=== PATIENT | female | born 1960 | race Caucasian/White ===

== ENCOUNTER 2018-02-28 05:59 | Day surgery (SDC) | payer BC ==
[~2018-02-28 05:59] MED LIST: Lactated Ringers 1,000 ML IV ONE
[2018-02-28] MEDS ORDERED: Lactated Ringers 1,000 ML IV SCH (06:00)
[2018-02-28] MEDS ORDERED: DIPRIVAN 200 MG/20 ML IV ONE (06:00)
[2018-02-28] MEDS ORDERED: Zofran 4 MG/2 ML VIAL ONE (06:08)
[2018-02-28] MEDS ORDERED: Zofran 4 MG/2 ML VIAL IV ONE ×2 (06:10→06:15)
[2018-02-28] MEDS ORDERED: Versed 2 MG/2 ML Injection IV ONE ×2 (06:15→06:40)
[2018-02-28] MEDS ORDERED: Versed 2 MG/2 ML Injection ONE (06:41)
[2018-02-28] MEDS ORDERED: Lactated Ringers 1,000 ML IV ONE (07:30)
[2018-02-28] MEDS ORDERED: Phenergan 25 MG INJ ONE (07:37)
[2018-02-28] MEDS ORDERED: Phenergan 25 MG INJ IV ONE (07:55)
--- NOTE | 2018-02-28 09:14 | OP ---
SURGERY DATE/TIME: 02/28/2018 0745 PREOPERATIVE DIAGNOSES: 1) Persistent gastroesophageal reflux disease. 2) Nausea. 3) Need for screening colonoscopy. POSTOPERATIVE DIAGNOSES: 1) Gastritis. 2) Colon polyp x5. PROCEDURES: 1) EGD. 2) Colonoscopy. SURGEON: Amado Nichols M.D. ANESTHESIA: MAC by Rachid Johnson CRNA. ESTIMATED BLOOD LOSS: Minimal. SPECIMENS: There were two cold forceps biopsies from the gastric antrum, one hot snare polypectomy and four hot forceps polypectomy. DESCRIPTION OF PROCEDURE: After informed written consent was obtained, the patient was taken to the endoscopy suite. A bite block was inserted and she underwent monitored anesthesia. Endoscope inserted in the posterior oropharynx and under direct visualization the esophagus was traversed. There were no mucosal abnormalities appreciable in the esophagus or the gastroesophageal junction. Upon entering the stomach there was some old dried blood present throughout the entire gastric cavity with no obvious areas of bleeding or ulceration present. There was some mild gastritis-type changes in the antrum. Pylorus was traversed and the first and second portions of the duodenum were within normal limits. Two cold forceps biopsies were taken from the gastric antrum and sent for Helicobacter pylori testing. The scope was removed and the scopes were switched. Digital rectal exam showed normal sphincter tone and no internal lesions. The scope was then inserted in the rectum and sequentially the entire colonic mucosa was traversed. The level of cecum was reached and verified with direct visualization of ileocecal valve. Upon withdrawal there was one large sessile polyp in the proximal sigmoid colon which was removed in its entirety with hot snare. It was retrieved in a trap and sent for pathology testing. Four small sessile polyps from the sigmoid colon were removed in their entirety with forceps and removed with cautery. Those were sent together for pathology testing. Prior to withdrawal retroflexion showed no internal lesions. The scope was removed and the patient was transferred to the recovery room in excellent condition. I have discussed the results with her and he reported that she is taking ibuprofen on a daily basis so I advised that she hold all NSAID's and take Tylenol at this time, continue with her proton pump inhibitor and await Helicobacter pylori testing results as far as the gastritis is concerned. She will follow up in one week for pathology results.
[2018-02-28 09:35] VITALS: O2SAT 94
[2018-02-28 09:43] VITALS: BP 114/50; PULSE 67
== END 2018-02-28 09:53 | disposition home or self-care (01) ==
LOC: SDC 05:59
PROVIDERS: ATTEND Family Medicine
DX: K29.70 Gastritis, unspecified, without bleeding (principal); K63.5 Polyp of colon; Z12.11 Encounter for screening for malignant neoplasm of colon; E03.9 Hypothyroidism, unspecified; F41.9 Anxiety disorder, unspecified
CPT/HCPCS: 88305; J2250; J2405; J2550; J2704

== ENCOUNTER 2024-04-25 08:18 | Day surgery (SDC) | payer MEDICARE, OTHER ==
--- NOTE | 2024-04-24 13:31 | HP ---
HISTORY OF PRESENT ILLNESS: Patient is a 64-year-old female who presents with positive Cologuard. Last colonoscopy with Dr. Nichols and she had some polyps. She sees no blood in the stool. She has no other complaints. PAST MEDICAL HISTORY: COPD, thyroid. HOME MEDICATIONS: Multivitamin, atenolol, fluconazole. ALLERGIES: Sulfonamide. PAST SURGICAL HISTORY: Cholecystectomy, breast biopsy, . SOCIAL HISTORY: Negative. FAMILY HISTORY: Breast cancer. REVIEW OF SYSTEMS: CONSTITUTIONAL: Denies fever or chills. CHEST: Denies shortness of breath. CARDIOVASCULAR: Denies chest pain. ABDOMEN: Denies abdominal pain. PHYSICAL EXAMINATION: GENERAL: No acute distress. CARDIOVASCULAR: Regular rate and rhythm. RESPIRATORY: Nonlabored. No shortness of breath. ABDOMEN: Soft. ASSESSMENT: Positive Cologuard. PLAN: Colonoscopy with Dr. Urban Salazar. This report was dictated for Dr. Salazar by Shreya Alvarez NP.
[2024-04-25 08:41] LABS: Absolute Neutrophil Ct (ANC) 2.85 x10^3/uL (1.56-6.13); BASOPHIL % 0.6 % (0.1-1.2); Basophil (Absolute #) 0.03 x10^3/uL (0.01-0.08); Eosinophil % 2.1 % (0.7-5.8); Eosinophil (Absolute #) 0.11 x10^3/uL (0.04-0.36); Hematocrit 40.1 % (34.1-44.9); Hemoglobin 13.5 g/dL (11.2-15.7); IMMATURE GRAN # 0.01 x10^3u/L (0.001-0.031); IMMATURE GRAN % 0.2 % (0.001-0.429); Lymphocyte (Absolute #) 1.44 x10^3/uL (1.18-3.74); Lymphocytes % 27.5 % (19.3-51.7); Mean Cell Volume 92.2 fL (79.4-94.8); Mean Corpuscular Hgb Concent. 33.7 g/dL (32.2-35.5); Mean Platelet Volume 8.4 fL (9.4-12.3); Monocyte (Absolute #) 0.79 x10^3/uL (0.24-0.86); Monocytes % 15.1 % (4.7-12.5); Neutrophil % 54.5 % (34.0-71.1); Platelet Count 236 x10^3/uL (182-369); Red Blood Count 4.35 x10^6/uL (3.93-5.22); White Blood Count 5.2 x10^3/uL (3.98-10.04)
[2024-04-25 08:51] VITALS: RESP 18
[2024-04-25 08:54] LABS: ANION GAP 12.2 MEQ/L (5-15); Calcium 9.3 mg/dL (8.4-10.2); Creatinine 1 0.67 mg/dL (0.52-1.04); EST GLOMERULAR FILTRATION RATE 96.9 ML/MIN; Potassium 3.7 mmol/L (3.5-5.1)
[2024-04-25] MEDS ORDERED: DIPRIVAN 200 MG/20 ML IV ONE ×2 (10:52→11:10)
[2024-04-25 11:22] VITALS: TEMP 98.7
[2024-04-25 11:43] VITALS: BP 122/76; PULSE 69; O2SAT 98
--- NOTE | 2024-04-29 09:13 | OP ---
SURGERY DATE/TIME: 04/25/2024 [id number] PREOPERATIVE DIAGNOSIS: Positive Cologuard. POSTOPERATIVE DIAGNOSIS: Three polyps, 1 cm cecal, 1 cm cecal, and 1 cm descending colon. PROCEDURE: Colonoscopic examination to cecum, hot polypectomy x3 of three 1 cm polyps submitted in 2 jars, cecal car and descending colon jar. SURGEON: Urban Salazar MD ANESTHESIA: General. COMPLICATIONS: None. CONDITION: Stable. INDICATIONS: Patient has positive Cologuard. She is 64 years old. She has not had a recent endoscopic examination. DESCRIPTION OF PROCEDURE AND FINDINGS: She was taken to endoscopy. Left lateral decubitus position. Scope was inserted. Anal digital examination satisfactory. Scope introduced. Scope advanced to the cecum. At the cecum, the cecum was just a little tricky. It seemed to almost be the end but then advanced inches, then also seemed to be the end again with a trifurcation but then was still advanced about 2 inches into the real cecum with the ileocecal valve, appendiceal orifice. There was 1 polyp here, 1 cm, taken with hot biopsy forceps to extinction. It was on a little bit of a fold. Coming back about 2 inches was a second polyp taken 1 cm. These both appeared totally benign. They were submitted in 1 container. Coming up the ascending hepatic transverse splenic descending, a 1 cm polyp was taken with the hot biopsy forceps. The sigmoid was fairly snug diameter but within the limits of the scope and the snugness, there was nothing in the sigmoid. Rectum satisfactory. Anus satisfactory. IMPRESSION: Successful hot polypectomy x3. We will put her down for 3-year followup colonoscopic examination. Findings discussed with Jeyson Meghan, her , in the waiting room.
== END 2024-04-25 11:47 | disposition home or self-care (01) ==
LOC: SDC 08:18
PROVIDERS: ATTEND Surgery
DX: D12.0 Benign neoplasm of cecum (principal); D12.4 Benign neoplasm of descending colon; R19.5 Other fecal abnormalities
CPT/HCPCS: 36415; 80048; 85025; J2704